=== PATIENT | female | born 1980 | race Caucasian/White ===

== ENCOUNTER 2020-03-08 09:14 | Emergency (ER) | payer MEDICAID ==
[~2020-03-08] VITALS: Ht 170.2 cm; Wt 57.7 kg
--- NOTE | 2020-03-08 10:30 | NUR ---
Assumed care of patient. C/O RLQ pelvic pain, VB, and foul smelling discharge. Reports partner has green discharge. Hx total hysterectomy. Will continue to monitor.
[2020-03-08] MEDS ORDERED: AZITHROMYCIN 500 MG TABLET ONE (11:00)
[2020-03-08] MEDS ORDERED: AZITHROMYCIN 500 MG TABLET PO ONE (11:00)
[2020-03-08] MEDS ORDERED: CEFTRIAXONE 250 MG IM ONE (11:00)
[2020-03-08] MEDS ORDERED: CEFTRIAXONE 250 MG ONE (11:01)
--- NOTE | 2020-03-08 11:13 | NUR ---
Pelvic exam performed by MD Jose. Assisted by EDA Ornelas. Procedure was very painful for patient.
[2020-03-08 11:49] LABS: MICROSCOPIC AUTO
[2020-03-08 12:03] LABS: CLUE CELLS NONE SEEN (NONE SEEN); WET PREP WBCS MODERATE (FEW)
[2020-03-08 12:58] VITALS: BP 125/76
--- NOTE | 2020-03-08 12:58 | NUR ---
Patient/Caregiver given discharge instructions and they have confirmed that they understand the instructions. Patient ambulatory with steady gait.
== END 2020-03-08 12:58 | disposition home or self-care (01) ==
LOC: ED 12:28
DX: N89.8 Other specified noninflammatory disorders of vagina (principal); R10.2 Pelvic and perineal pain; R30.0 Dysuria; Z90.710 Acquired absence of both cervix and uterus
CPT/HCPCS: 81001; 87086; 87210; 87491; 87591; 87808; 96372; 99283; J0696